=== PATIENT | male | born 1980 | race Caucasian/White ===

== ENCOUNTER 2017-02-06 11:46 | Emergency (ER) | payer OTHER ==
[~2017-02-06] VITALS: Ht 187.9 cm; Wt 68.0 kg
[~2017-02-06 11:46] MED LIST: BUSPAR5 MG PO; CLARITIN10 MG PO; CLEOCIN150 MG PO; CLINDAMYCIN HC300 MG PO; CLINDAMYCIN150 MG PO; CYCLOBENZAPRINE10 MG PO; FLEXERIL10 MG PO; GOOD NEIGHBOR650 MG PO; HYDROCODONE BIT1 T11 PO; IBUPROFEN PO; KEFLEX500 MG PO; MEDROL DOSEPAK4 MG PO; MOTRIN800 MG PO; Motrin,Rufen800 MG PO; NKHM PO; PERCOCET 325 MG1 TA7 PO; PREDNICOT20 MG PO; Peridex 473 ML473 ML PO; SEROQUEL400 M1 PO; TRAMADOL HCL50 MG PO; ULTRAM50 MG PO; ZOFRAN4 MG PO
[2017-02-06] MEDS ORDERED: MIRTAZAPINE15 M2 PO (12:00)
[2017-02-06] MEDS ORDERED: MOBIC15 MG PO (13:17)
[2017-02-06] MEDS ORDERED: CYCLOBENZAPRINE10 MG PO (13:17)
== END 2017-02-06 14:04 | disposition home or self-care (01) ==
LOC: ED 11:46
DX: S46.912A Strain of unspecified muscle, fascia and tendon at shoulder and upper arm level, left arm, initial encounter (principal); F17.200 Nicotine dependence, unspecified, uncomplicated; F32.9 Major depressive disorder, single episode, unspecified; Z88.0 Allergy status to penicillin; X50.9XXA Other and unspecified overexertion or strenuous movements or postures, initial encounter; Y93.89 Activity, other specified; Y92.89 Other specified places as the place of occurrence of the external cause; Y99.0 Civilian activity done for income or pay

== ENCOUNTER 2017-10-03 11:35 | Emergency (ER) | payer OTHER ==
[~2017-10-03] VITALS: Wt 82.6 kg
[~2017-10-03 11:35] MED LIST changes: +MIRTAZAPINE15 M2 PO; +MOBIC15 MG PO
[2017-10-03] MEDS ORDERED: CYCLOBENZAPRINE10 MG PO (15:10)
[2017-10-03] MEDS ORDERED: Zofran4 MG SL (15:10)
[2017-10-03] MEDS ORDERED: NAPROSYN500 MG PO (15:10)
== END 2017-10-03 15:12 | disposition home or self-care (01) ==
LOC: ED 11:35
DX: M54.5 Low back pain (principal); R11.2 Nausea with vomiting, unspecified; F17.200 Nicotine dependence, unspecified, uncomplicated; Z88.0 Allergy status to penicillin; X50.1XXA Overexertion from prolonged static or awkward postures, initial encounter; Y93.89 Activity, other specified; Y92.89 Other specified places as the place of occurrence of the external cause; Y99.9 Unspecified external cause status

== ENCOUNTER 2018-02-19 20:12 | Emergency (ER) | payer OTHER ==
[~2018-02-19] VITALS: Ht 185.4 cm; Wt 73.0 kg
[~2018-02-19 20:12] MED LIST changes: +NAPROSYN500 MG PO; +Zofran4 MG SL
[2018-02-19] MEDS ORDERED: Motrin,Rufen800 MG PO (20:24)
[2018-02-19] MEDS ORDERED: CIPRO500 MG PO (20:24)
== END 2018-02-19 20:40 | disposition home or self-care (01) ==
LOC: ED 20:12
DX: S91.332A Puncture wound without foreign body, left foot, initial encounter (principal); Z88.0 Allergy status to penicillin; W45.0XXA Nail entering through skin, initial encounter; Y93.89 Activity, other specified; Y92.89 Other specified places as the place of occurrence of the external cause; Y99.8 Other external cause status

== ENCOUNTER 2019-09-19 08:40 | Emergency (ER) | payer SELFPAY ==
[~2019-09-19] VITALS: Ht 187.9 cm; Wt 72.6 kg
[~2019-09-19 08:40] MED LIST changes: +CIPRO500 MG PO
[2019-09-19] MEDS ORDERED: CYCLOBENZAPRINE10 MG PO (09:34)
[2019-09-19] MEDS ORDERED: MEDROL DOSEPAK4 MG PO (09:34)
== END 2019-09-19 09:49 | disposition home or self-care (01) ==
LOC: ED 08:40
DX: M54.5 Low back pain (principal); G89.29 Other chronic pain; F17.200 Nicotine dependence, unspecified, uncomplicated; Z88.0 Allergy status to penicillin

== ENCOUNTER 2024-03-25 10:02 | Emergency (ER) | payer SELFPAY ==
[~2024-03-25] VITALS: Ht 187.9 cm; Wt 81.6 kg
[2024-03-25] MEDS ORDERED: Cyclobenzaprine Hydrochlorid 10 MG TAB PO ONE (10:15)
[2024-03-25] MEDS ORDERED: Acetaminophen/Oxycodone 5 MG/325 MG TABLET PO ONE (10:15)
[2024-03-25] MEDS ORDERED: LIDOCAINE 1 EA PATCH T ONE (10:15)
[2024-03-25] MEDS ORDERED: Dexamethasone Sodium Phospha 20 MG/5 ML VIAL IM ONE (10:15)
[2024-03-25] MEDS ORDERED: Ketorolac Tromethamine 30 MG/ML VIAL IM ONE (10:15)
[2024-03-25] MEDS ORDERED: ASPERCREME LID1 EACH T (11:02)
[2024-03-25] MEDS ORDERED: CYCLOBENZAPRINE5 M3 PO (11:02)
[2024-03-25] MEDS ORDERED: MEDROL DOSEPAK4 MG PO (11:02)
== END 2024-03-25 11:13 | disposition home or self-care (01) ==
LOC: ED 10:02
DX: M62.830 Muscle spasm of back (principal); F32.A Depression, unspecified; Z88.0 Allergy status to penicillin; Z98.890 Other specified postprocedural states